=== PATIENT | female | born 1980 | race Caucasian/White ===

== ENCOUNTER 2018-03-29 18:00 | Emergency (ER) | payer OTHER ==
[~2018-03-29] VITALS: Ht 170.2 cm; Wt 68.0 kg
--- NOTE | ~2018-03-29 | EKG ---
[address] [address] ELECTROCARDIOGRAM REPORT Name: ANN MARIE COTTON Room #: REG JOSÉ Wright#: [id number] Admission: 03/29/18 Attend Phys: Discharge: Date of : 78 Report #: [id number] THIS REPORT FOR: //name// [facility] ED Test Date: 2018-03-29 Test Time: 18:52:05 Pat Name: ANN MARIE COTTON Department: Room: Gender: F Page Designer: JJ : 1980 Requested By: Joselin Christina Order Number: [id number] MD: Randall Richards Measurements Intervals [place] Rate: 90 P: 42 GA: 120 QRS: 51 QRSD: 90 T: 17 QT: 363 QTc: 444 Interpretive Statements Sinus rhythm No previous ECG available for comparison Electronically Signed On 03-29-2018 22:59:07 CDT by Randall Richards [email or web address] <ELECTRONICALLY SIGNED> By: Randall Richards MD 03/29/18 2259 1852 51 Randall Richards MD /EPI
[2018-03-29 19:12] LABS: EOSINOPHILS 0.8 % (0.0-3.0); HEMATOCRIT 37.3 % (37.0-47.0); HEMOGLOBIN 12.9 gm/dL (12.0-15.0); LYMPHOCYTES 24.4 % (24.0-44.0); MCH 32.7 pg (26.0-34.0); MCHC 34.6 g/dL (28.0-37.0); MCV 94.4 fL (80.0-100.0); MONOCYTES 9.6 % (1.0-8.0); PLATELET COUNT 219 thou/uL (150-400); POLYS 64.2 % (36.0-66.0); RBC 3.96 mil/uL (4.20-5.00); RDW 12.7 % (10.5-14.5); WBC 4.7 thou/uL (4.0-11.0)
[2018-03-29 19:23] LABS: ANION GAP 9 mmol/L (7-16); BUN 13 mg/dL (7-18); CALCIUM 8.9 mg/dL (8.5-10.1); CHLORIDE 104 mmol/L (98-107); CO2 23 mmol/L (21-32); CREATININE 0.9 mg/dL (0.6-1.0); GLUCOSE 111 mg/dL (74-106); POTASSIUM 3.6 mmol/L (3.5-5.1); SODIUM 136 mmol/L (136-145)
[2018-03-29 19:37] LABS: ALBUMIN 3.9 g/dL (3.4-5.0); SGOT 26 U/L (15-37); SGPT 61 U/L (30-65); TOTAL BILIRUBIN 0.4 mg/dL (<0.1-1.0); TOTAL PROTEIN 7.5 g/dL (6.4-8.2); TROPONIN-I < 0.04 ng/mL (<0.06)
[2018-03-29] MEDS ORDERED: ADDERALL 20 MG20 M1 PO (20:22)
[2018-03-29] MEDS ORDERED: XANAX1 MG PO (20:22)
[2018-03-29 20:23] VITALS: BP 127/79
== END 2018-03-29 20:20 | disposition home or self-care (01) ==
LOC: ER 18:00
PROVIDERS: Physician Assistant
DX: R07.89 Other chest pain (principal); R00.2 Palpitations; F90.9 Attention-deficit hyperactivity disorder, unspecified type